=== PATIENT | male | born 1955 | race Caucasian/White ===

== ENCOUNTER 2017-10-21 07:27 | Day surgery (SDC) | payer BC ==
[2017-10-21] MEDS ORDERED: LIDOCAINE 2% MDV (20MG/ML) 20ML VIAL IV ONE (07:28)
--- NOTE | 2017-10-21 12:30 | Operative Note ---
DATE OF SURGERY: 10/21/2017 REFERRING PROVIDER: Ady Barragan MD PREOPERATIVE DIAGNOSIS: Colon cancer screening, average risk. POSTOPERATIVE DIAGNOSIS: Includes normal exam. OPERATION: COLONOSCOPY for screening. Preparation Quality: Excellent. Estimated Blood Loss: None. Samples Obtained: None. Complications: None apparent. PROCEDURE: After informed consent was obtained, the patient was placed in the left lateral decubitus position in the endoscopy suite, sedated and monitored by the Department of Anesthesia. Digital rectal exam revealed no palpable rectal mass. A well-lubricated PCF-180 colonoscope was inserted into the rectum and advanced to the cecum. The preparation quality was excellent. The cecum, ileocecal valve, appendiceal orifice, ascending colon, transverse colon, descending colon, sigmoid colon, and rectum were free of inflammatory changes, mass lesions or polyps. J-turn views of the anorectum were unremarkable. The endoscope was straightened, the rectal ampulla deflated and the endoscope was removed. RECOMMENDATIONS: Given his average risk and negative exam, I would recommend a repeat exam in 10 years, or sooner should symptoms warrant or should the family history change. As always, thank you for allowing me to participate in the health care of your patients. CC: Ady Barragan MD [facility]
== END 2017-10-21 09:04 | disposition home or self-care (01) ==
LOC: HOP 07:27
PROVIDERS: ATTEND Internal Medicine Gastroenterology
DX: Z12.11 Encounter for screening for malignant neoplasm of colon (principal)
CPT/HCPCS: 00812; G0121